=== PATIENT | female | born 1965 | race Caucasian/White ===

== ENCOUNTER 2025-03-13 23:07 | Emergency (ER) | payer MEDICAID, OTHER ==
[~2025-03-13] VITALS: Ht 167.6 cm; Wt 61.2 kg
--- NOTE | 2025-03-13 23:26 | ED.PDOC ---
HPI (NEURO) HPI Comments C/C: MIGRAINES FOR THE PAST 3 DAYS. PMH OF HTN. PATIENT STATES THATSHE TOOK, TYLENOL, ADVIL, AND SUMATRIPTAN SPRAY WITH NO RELIEF.PATIENT STATES THAT THEY USUALLY GIVE HER DILAUDID AND BENADRYL.A&OX4. Time Seen by MD: 23:11 Reviewed Notes: Nurses Notes, Medications, Allergies Information Source: Patient Past Medical History PAST MEDICAL HISTORY: Denies Surgical History: Denies all surgeries BISCUITWARE BRUSHER History: No Pertinent BISCUITWARE BRUSHER History Family History Family History: Unknown Social History Smoker: Non-Smoker Alcohol: Denies ETOH Use Drugs: Denies Drug Use Constitutional: denies: chills, diaphoresis, fatigue, fever, malaise, sweats, weakness, others EENTM: denies: blurred vision, double vision, ear bleeding, ear discharge, ear drainage, ear pain, ear ringing, eye pain, eye redness, hearing loss, mouth pain, mouth swelling, nasal discharge, nose bleeding, nose congestion, nose pain, photophobia, tearing, throat pain, throat swelling, voice changes, others Respiratory: denies: cough, hemoptysis, orthopnea, SOB at rest, shortness of breath, SOB with excertion, stridor, wheezing, others Cardiovascular: denies: chest pain, dizzy spells, diaphoresis, Dyspnea on exertion, edema, irregular heart beat, left arm pain, lightheadedness, palpitations, PND, syncope, others Gastrointestinal: denies: abdomen distended, abdominal pain, blood streaked bowels, constipated, diarrhea, dysphagia, difficulty swallowing, hematemesis, melena, nausea, poor appetite, poor fluid intake, rectal bleeding, rectal pain, vomiting, others Genitourinary: denies: abnormal vagina bleeding, burning, dyspareunia, dysuria, flank pain, frequency, hematuria, incontinence, pain, , vagina discharge, urgency, others Neurological: reports: headache; denies: dizziness, fainting, left sided numbness, left sided weakness, numbness, paresthesia, pre-existing deficit, right sided numbness, right sided weakness, seizure, speech problems, tingling, tremors, weakness, others Musculoskeletal: denies: back pain, gout, joint pain, joint swelling, muscle pain, muscle stiffness, neck pain, others Integumetry: denies: bruises, change in color, change in hair/nails, dryness, laceration, lesions, lumps, rash, wounds, others Allergic/Immunocompromised: denies: Difficulty Healing, Frequent Infections, Hives, Itching, others Hematologic/Lymphatic: denies: anemia, blood clots, easy bleeding, easy bruising, swollen glands, others Endocrine: denies: excessive hunger, excessive sweating, excessive thirst, excessive urination, flushing, intolerance to cold, intolerance to heat, unexplained weight gain, unexplained weight loss, others Psychiatric: denies: anxiety, bipolar disorder, depression, hopeless, panic disorder, schizophrenia, sleepless, suicidal, others Physical Exam General Appearance: No Apparent Distress, Normal HEENT: Pharynx Normal Neck: Full Range of Motion, Non-Tender Respiratory: Lungs Clear, No Respiratory Distress, Normal Breath Sounds Cardiovascular: No Edema, No JVD, No Murmur, No Gallop, Normal Peripheral Pulses, Regular Rate/Rhythm Breast Exam: Deferred Gastrointestinal: No Organomegaly, Non Tender, No Pulsatile Mass, Normal Bowel Sounds, Soft Genitalia: Deferred Pelvic: Deferred Rectal: Deferred Extremities: Normal capillary refill, Normal inspection, Normal range of motion, Non-tender, No pedal edema Musculoskeletal : Apperance: Normal Neurologic: Alert, lockstitch waistband setter II-XII nml as Tested, No Motor Deficits, Normal Affect, Normal Mood, No Sensory Deficits Cerebellar Function: Normal Reflexes: Normal Skin: Dry, Normal Color, Warm Lymphatic: No Adenopathy Was a procedure done? Was a procedure done?: No Differential Diagnosis (SZ) Headache: Migraine, Intracerebral Hemorrhage, Subarachnoid Hemorrhage, Subdural Hemorrhage X-Ray, Labs, Meds, VS Vital Signs Date Time Temp Pulse Resp B/P (MAP) Pulse Ox O2 Delivery O2 Flow Rate FiO2 03/14/25 02:48 64 18 166/110 (128) 99 03/14/25 02:36 64 18 166/110 03/14/25 02:23 187/109 (135) 03/14/25 02:01 98 20 202/150 03/14/25 01:56 74 18 202/115 (144) 100 03/13/25 23:31 98.2 87 17 160/109 (126) 96 98.2 03/13/25 23:31 Room Air 03/13/25 23:31 98.2 87 17 160/109 (126) 96 98.2 Current Medications Medications (Trade) Dose Ordered Sig/Kassandra Route Start Time Stop Time Status Last Admin Sodium Chloride 1,000 ml @ 1,000 mls/hr Q1H ONCE IV 03/13/25 23:30 03/14/25 00:29 DC 03/13/25 23:30 Prochlorperazine Edisylate (Compazine Inj) 5 mg ONCE ONCE IV 03/13/25 23:30 03/13/25 23:31 DC 03/14/25 01:09 Diphenhydramine HCl (Benadryl Injection) 25 mg ONCE ONCE IV 03/13/25 23:30 03/13/25 23:31 DC 03/14/25 01:09 Ketorolac Tromethamine (Toradol Injection) 30 mg ONCE ONCE IV 03/13/25 23:30 03/13/25 23:31 DC 03/14/25 01:08 Morphine Sulfate 2 mg ONCE ONCE IV 03/14/25 01:45 03/14/25 01:46 DC 03/14/25 02:01 X-Ray, Labs, Meds, VS Comment PATIENT WAS GIVEN NORMAL SALINE A 1000 CC, BENADRYL 25 MG IV PUSH, AND TORADOL 30 MG IV PUSH. REPORTING 9/10 HEAD PAIN REQUESTING FURTHER PAIN MEDICATIONS. DENIES CHEST PAIN, DIFFICULTY BREATHING, SHORTNESS OF BREATH, OR ANY FOCAL NEURO DEFICITS. CURRENTLY ON CLONIDINE STATES SHE HAS A CLONIDINE PATCH ON FOR PAIN IN HER BLOOD PRESSURE. PATIENT REPORTS IMPROVEMENT IN PAIN SHE NOTES MIGRAINE 2/10 REQUESTING DISCHARGE AT THIS TIME. ADVISED TO FOLLOW UP WITH HER PCP IN 1-2 DAYS NECESSARY ER RETURN PRECAUTIONS GIVEN PATIENT INDICATES UNDERSTANDING AGREES WITH DISCHARGE PLAN OF CARE. Time of 1ST Reevaluation: 23:25 Reevaluation 1ST: Unchanged Patient Education/Counseling: Diagnosis, Treatment, Prognosis, Need For Follow Up Family Education/Counseling: Diagnosis, Treatment, Prognosis, Need For Follow Up Departure 1 Departure Time of Disposition: 02:46 Impression: Primary Impression: Migraine Qualified Codes: G43.919 - Migraine, unspecified, intractable, without status migrainosus Disposition: 01 HOME / SELF CARE / HOMELESS Condition: Stable Discharged With: Relative Critical Care Note Critical Care Time?: No Stability Stability form required: ADEEL Camarena Mar 13, 2025 23:26
[2025-03-13] MEDS: SODIUM CHLORIDE 0.9% 1,000 ML IV ONE (23:30)
[2025-03-13 23:31] VITALS: TEMP 98.2
[2025-03-14] MEDS: KETOROLAC TROMETH 30 MG/ML 1ML VIAL IV ONE (01:08)
[2025-03-14] MEDS: PROCHLORPERAZINE EDISYLATE 5 MG/ML 2ML VIAL IV ONE (01:09)
[2025-03-14] MEDS: diphenhdrAMINE HCL 50 MG/1 ML VL IV ONE (01:09)
[2025-03-14] MEDS: MORPHINE SULFATE INJ 2 MG/ml SYRG IV ONE (02:01)
[2025-03-14 02:48] VITALS: BP 166/110; PULSE 64; RESP 18; O2SAT 99
== END 2025-03-14 03:00 | disposition home or self-care (01) ==
LOC: ER 23:07
DX: G43.909 Migraine, unspecified, not intractable, without status migrainosus (principal); I10 Essential (primary) hypertension; Z79.899 Other long term (current) drug therapy
CPT/HCPCS: 96361; 96374; 96375; 99285; J0780; J1200; J1885; J2270; J7030; 96360